=== PATIENT | male | born 1940 | race African-American/Black ===

== ENCOUNTER 2020-12-03 09:52 | Emergency (ER) | payer OTHER ==
[~2020-12-03] VITALS: Ht 172.7 cm; Wt 79.0 kg
[2020-12-03] MEDS ORDERED: DILTIAZEM HCL 5MG/ML 5ML VIAL IV ONE (10:30)
[2020-12-03 10:32] LABS: BASOPHILS % 0.5 % (0.0-2.0); EOSINOPHILS % 2.3 % (0.0-5.0); HEMATOCRIT. 44.7 % (42.0-52.0); HEMOGLOBIN. 15.3 g/dL (14.0-18.0); LYMPHOCYTES % 28.7 % (20.0-50.0); MEAN CORPUSCULAR HEMOGLOBIN 32.1 pg (28.0-32.0); MEAN CORPUSCULAR VOLUME 93.5 fL (80.0-94.0); MEAN PLATELET VOLUME 10.1 fl (7.4-10.4); MONOCYTES % 3.4 % (2.0-8.0); NEUTROPHILS % 65.1 % (40.0-76.0); PLATELET 133 x1000/uL (130-400); RED BLOOD CELL COUNT 4.78 mill/uL (4.7-6.1); RED CELL DISTRIBUTION WIDTH 12.7 % (11.6-14.6)
[2020-12-03 10:38] LABS: CHLORIDE 110 mEq/L (98-107)
[2020-12-03 10:40] LABS: PROTHROMBIN TIME 11.2 sec (9.6-11.0)
[2020-12-03 10:43] VITALS: BP 118/64
[2020-12-03 10:47] LABS: T4 FREE 1.09 ng/dL (0.76-1.46)
[2020-12-03] MEDS ORDERED: FUROSEMIDE 20MG/2ML VIAL IVP ONE (11:15)
== END 2020-12-03 14:06 | disposition left against medical advice (07) ==
LOC: ER 09:52 → EDBEDREQ 12:19 → CANBEDREQ 13:57 → ER 14:06 → SUPCPDRO 16:44
DX: I48.91 Unspecified atrial fibrillation (principal); I11.0 Hypertensive heart disease with heart failure; I50.9 Heart failure, unspecified; E86.0 Dehydration; R73.9 Hyperglycemia, unspecified
CPT/HCPCS: 36415; 70450; 71045; 80053; 83690; 83735; 83880; 84439; 84443; 84484; 85025; 85610; 93005; 96374; 96375; 99285; J1940; J3490